=== PATIENT | male | born 1960 | race American Indian/Alaskan Native ===

== ENCOUNTER 2018-03-22 09:16 | Emergency (ER) | payer MEDICARE ==
[2018-03-22 09:26] VITALS: BP 135/79
[2018-03-22 10:08] LABS: Bilirubin,Urine NEG (Negative); Blood,Urine NEG (Negative); Color,Urine Yellow (Yellow); Mucus,Urine FEW /HPF; Protein,Urine <15 mg/dL mg/dL (Negative); Urobilinogen,Urine < 2.0 mg/dL (<2.0)
--- NOTE | 2018-03-22 11:27 | Emergency Department Report ---
Blank Doc - Documentation Documentation: Patient is a 57-year-old -[place] male who's had scrotal swelling for approximately 1 year. Patient states that he has become painful over the last week. There is no dysuria fevers chills at this time. Focused focused physical exam patient does have some generalized scrotal swelling there is no induration to the skin or warmth. Unable to palpate the patient's testicles. Ultrasound be performed.
--- NOTE | 2018-03-22 12:34 | Emergency Department Report ---
ED Male HPI - General Chief complaint: Urogenital-Male Stated complaint: TESTICULAR SWELLING Time Seen by Provider: 03/22/18 11:14 Source: patient Mode of arrival: Ambulatory Limitations: No Limitations - History of Present Illness Initial comments: 57-year-old male sense with complaint of left sided testicular swelling and discomfort for over one year. Patient denies fevers chills nausea vomiting dysuria hematuria or increased urinary frequency. Patient denies any direct trauma to testicles. Patient denies any rectal pain. Denies any penile discharge. Denies any previous history of epididymitis. MD Complaint: testicle pain, testicle swelling Onset/Timin -: year(s) Location: left testicle Severity: moderate Severity scale (0 -10): 6 Quality: aching, dull Improves with: none Worsens with: none swelling - Related Data Previous Rx's Medication Instructions Recorded Last Taken Type Cephalexin [Keflex] 500 mg PO Q6HR #40 capsule 11/20/15 Unknown Rx HYDROcodone/APAP 5-325 [Aline 1 each PO Q4HR PRN #6 tablet 11/20/15 Unknown Rx 5/325] Sulfamethoxazole/Trimethoprim 1 each PO BID #14 tablet 11/20/15 Unknown Rx [Bactrim DS TAB] Ibuprofen [Motrin] 800 mg PO Q8HR PRN #25 tablet 03/22/18 Unknown Rx Allergies Allergy/AdvReac Type Severity Reaction Status Date / Time Penicillins Allergy Unknown Verified 03/22/18 09:26 ED Review of Systems ROS: Stated complaint: TESTICULAR SWELLING Other details as noted in HPI Constitutional: denies: chills, fever Eyes: denies: eye pain, eye discharge, vision change ENT: denies: ear pain, throat pain Respiratory: denies: cough, shortness of breath, wheezing Cardiovascular: denies: chest pain, palpitations Endocrine: no symptoms reported Gastrointestinal: denies: abdominal pain, nausea, diarrhea Genitourinary: as per HPI, testicular pain, testicular mass (left-sided testicular swelling for over one year). denies: urgency, dysuria Musculoskeletal: denies: back pain, joint swelling, arthralgia Skin: denies: rash, lesions Neurological: denies: headache, weakness, paresthesias Psychiatric: denies: anxiety, depression Hematological/Lymphatic: denies: easy bleeding, easy bruising ED Past Medical Hx - Past Medical History Additional medical history: glaucoma - Social History Smoking Status: Current Every Day Smoker Substance Use Type: Alcohol - Medications Home Medications: Home Medications Medication Instructions Recorded Confirmed Last Taken Type Cephalexin [Keflex] 500 mg PO Q6HR #40 capsule 11/20/15 Unknown Rx HYDROcodone/APAP 5-325 [Aline 1 each PO Q4HR PRN #6 tablet 11/20/15 Unknown Rx 5/325] Sulfamethoxazole/Trimethoprim 1 each PO BID #14 tablet 11/20/15 Unknown Rx [Bactrim DS TAB] Ibuprofen [Motrin] 800 mg PO Q8HR PRN #25 tablet 03/22/18 Unknown Rx ED Physical Exam - General Limitations: No Limitations General appearance: alert, in no apparent distress - Head Head exam: Present: atraumatic, normocephalic - Eye Eye exam: Present: normal appearance - ENT ENT exam: Present: mucous membranes moist - Neck Neck exam: Present: normal inspection - Respiratory Respiratory exam: Present: normal lung sounds bilaterally. Absent: respiratory distress - Cardiovascular Cardiovascular Exam: Present: regular rate, normal rhythm. Absent: systolic murmur, diastolic murmur, rubs, gallop - GI/Abdominal GI/Abdominal exam: Present: soft, normal bowel sounds - Rectal Rectal exam: Present: deferred - exam: Present: testicular tenderness (left-sided testicular pain and swelling ) - Extremities Exam Extremities exam: Present: normal inspection - Back Exam Back exam: Present: normal inspection - Neurological Exam Neurological exam: Present: alert, oriented X3 - Psychiatric Psychiatric exam: Present: normal affect, normal mood - Skin Skin exam: Present: warm, dry, intact, normal color. Absent: rash ED Course Vital Signs 03/22/18 09:21 Temperature 97.4 F L Pulse Rate 77 Respiratory 16 Rate Blood Pressure 135/79 O2 Sat by Pulse 97 Oximetry ED Medical Decision Making - Medical Decision Making A/P: Left-sided hydrocele 1-urinalysis is unremarkable, scrotal/testicular ultrasound shows large left hydrocele no other abnormalities 2-patient referred to outpatient surgery and 3-I educated patient on hydrocele 4- Motrin when necessary Critical care attestation.: If time is entered above; I have spent that time in minutes in the direct care of this critically ill patient, excluding procedure time. ED Disposition Clinical Impression: Hydrocele in adult Disposition: DC-01 TO HOME OR SELFCARE Is pt being admited?: No Does the pt Need Aspirin: No Condition: Stable Instructions: Hydrocele (ED), Testicle Pain (ED) Prescriptions: Ibuprofen [Motrin] 800 mg PO Q8HR PRN #25 tablet PRN Reason: Pain , Severe (7-10) Referrals: [facility] [Provider Group] - 3-5 Days [facility] [Provider Group] - 3-5 Days Forms: Accompanied Note, Work/School Release Form(ED) Time of Disposition: 14:07
--- NOTE | 2018-03-22 14:04 | Ultrasound Report ---
FINAL REPORT EXAM: US TESTICULAR DOPPLER COMP HISTORY: pain with swelling TECHNIQUE: Grayscale and color and spectral doppler ultrasound imaging of the scrotum was performed. PRIORS: None. FINDINGS: The testicles are normal in echogenicity without focal lesion. Normal flow is seen to the testes. Normal arterial and venous waveforms were seen within the testes. The right testicle measures 4.0 x 2.2 x 2.6 centimeters. The left testicle measures 3.6 x 2.6 x 3.1 centimeters. The epididymides are normal. No varicocele. There is a very large left hydrocele. No right hydrocele. IMPRESSION: 1. No evidence of testicular torsion. 2. Very large left hydrocele.
== END 2018-03-22 14:10 | disposition home or self-care (01) ==
LOC: ED 09:16
DX: N43.3 Hydrocele, unspecified (principal); Z88.0 Allergy status to penicillin; F17.200 Nicotine dependence, unspecified, uncomplicated
CPT/HCPCS: 81001; 87086; 93975; 99284

== ENCOUNTER 2018-03-30 07:33 | Day surgery (SDC) | payer MEDICARE ==
[2018-03-30] MEDS ORDERED: LACTATED RINGERS 1,000 ML IV SCH (08:00)
[2018-03-30] MEDS ORDERED: VERSED IV NR (08:00)
[2018-03-30] MEDS ORDERED: NACL BACTERIOSTATIC INFILTRATI ONE (08:01)
[2018-03-30] MEDS ORDERED: PROAIR IH ONE (08:19)
--- NOTE | 2018-03-30 08:30 | Anesthesia Consultation ---
Anesthesia Consult and Med Hx Date of service: 03/30/18 - Airway Anesthetic Teeth Evaluation: Poor ROM Head & Neck: Adequate Mental/Hyoid Distance: Adequate Mallampati Class: Class I Intubation Access Assessment: Probably Good - Pulmonary Exam CTA: Yes - Cardiac Exam Cardiac Exam: RRR - Pre-Operative Health Status ASA Pre-Surgery Classification: ASA2 Proposed Anesthetic Plan: General - Pulmonary Hx Smoking: Yes (1 ppd >30 years) Hx Asthma: No Hx Respiratory Symptoms: Yes (productive morning cough) SOB: No COPD: Yes Home Oxygen Therapy: No Hx Pneumonia: No Hx Sleep Apnea: No - Cardiovascular System Hx Hypertension: No Hx Coronary Artery Disease: No Hx Heart Attack/AMI: No Hx Angina: No - Central Nervous System Hx Neuromuscular Disorder: No Hx Seizures: No CVA: No - Gastrointestinal Hx Gastroesophageal Reflux Disease: No - Endocrine Hx Renal Disease: No Hx Liver Disease: No Hx Hypothyroidism: No - Hematic Hx Anemia: No Hx Sickle Cell Disease: No - Other Systems Hx Alcohol Use: Yes (social) Hx Substance Use: No Hx Cancer: No Hx Obesity: No - Additional Comments Anesthesia Medical History Comments: No GAC, No FHAC
[2018-03-30] MEDS ORDERED: XYLOCAINE 1% 20 mL ONE (08:36)
[2018-03-30] MEDS ORDERED: MARCAINE 0.5% INFILTRATI ONE (08:36)
[2018-03-30] MEDS ORDERED: ROBINUL ONE (08:45)
[2018-03-30] MEDS ORDERED: DILAUDID ONE ×3 (08:46→11:28)
[2018-03-30] MEDS ORDERED: DIPRIVAN 10 MG/ML IV ONE (08:46)
[2018-03-30] MEDS ORDERED: ANCEF/STERILE WATER 2 GM/20 ML IV NR (09:00)
[2018-03-30] MEDS ORDERED: LEVAQUIN 500MG/100ML 500 MG/100 ML BAG IV NR (10:00)
[2018-03-30] MEDS ORDERED: ZOFRAN ONE (10:05)
[2018-03-30] MEDS ORDERED: DECADRON ONE (10:05)
[2018-03-30] MEDS ORDERED: NACL 0.9% IR ONE (10:25)
[2018-03-30] MEDS ORDERED: SUBLIMAZE ONE (11:03)
[2018-03-30] MEDS: DILAUDID IV PRN ×4 (11:25→12:15)
[2018-03-30] MEDS ORDERED: TORADOL IV PRN (11:45)
--- NOTE | 2018-03-30 11:46 | Post Operative Note ---
Date of procedure: 03/30/18 Pre-op diagnosis: left hydrocele Post-op diagnosis: same Findings: huge mass Procedure: L hydrocelectomy Anesthesia: GETA Surgeon: SARAN LINARES Estimated blood loss: minimal Pathology: list (sac) Specimen disposition: to lab Condition: stable Disposition: PACU
--- NOTE | 2018-03-30 11:47 | Discharge Summary ---
Short Stay Discharge Plan Activity: other (no straining ) Weight Bearing Status: Full Weight Bearing Diet: low salt Wound: change dressing Special Instructions: other (ice packs in RR and x 2 4 hrs ) Follow up with: [facility]IMARY [facility]ARE, [Primary Care Provider] - 7 Days SARAN LINARES MD [Staff Physician] - 3 Days
--- NOTE | 2018-03-30 11:50 | Anesthesia Day of Surgery ---
Anesthesia Day of Surgery - Day of Surgery Patient Examined: Yes Patient H&P Reviewed: Yes Patient is NPO: Yes
--- NOTE | 2018-03-30 11:50 | Post Anesthesia Evaluation ---
- Post Anesthesia Evaluation Patient Participated: Yes Airway Patent: Yes Stable Respiratory Function: Yes Nausea/Vomiting: No Temp > 96.8F: Yes Pain Manageable: Yes Adequeate Hydration: Yes Anesthesia Complications: No
--- NOTE | 2018-03-30 12:04 | Operative Report ---
PREOPERATIVE DIAGNOSIS: Huge mass in the scrotum, left side. POSTOPERATIVE DIAGNOSES: Huge left hydrocele. PROCEDURE: Left hydrocelectomy. SURGEON: Zack Sanchez MD. ANESTHESIA: General. FINDINGS: This is a gentleman with a huge mass in the left hemiscrotum, now presents for surgery. All risks and implications discussed. DESCRIPTION OF PROCEDURE: The patient was brought to the operating room and placed on the operating table. Following induction of anesthesia, placed in the supine position, prepped and draped in usual sterile fashion. An oblique incision made over the hemiscrotum, carried through the multiple layers of scrotal fascia to the tunica vaginalis. Plenty of small vessels were cauterized. Once we delivered the sac, it was opened. There was about 1000 mL of clear yellow fluid. This is a chronic process as can seen by the yellow discoloration of some of the tunica. Large amount of tunica was excised and this was oversewn with 3-0 chromic. The patient tolerated the procedure well. We did a few bottle neck sutures as well. No significant complication. No significant bleeding. Specimen sent to pathology. A Taft drain was placed in the dependent portion of the scrotum and secured with a silk. Closure was accomplished with 2-0 and 3-0 chromic for the fascia and skin. The patient tolerated the procedure well and brought to recovery in stable condition. JOB# [id number] BERENICE/ABDI
[2018-03-30 13:10] VITALS: BP 154/88
== END 2018-03-30 13:14 | disposition home or self-care (01) ==
LOC: OR 07:33
PROVIDERS: ATTEND Urology
DX: L72.8 Other follicular cysts of the skin and subcutaneous tissue (principal); F17.210 Nicotine dependence, cigarettes, uncomplicated; M19.90 Unspecified osteoarthritis, unspecified site; Z88.0 Allergy status to penicillin; Z90.49 Acquired absence of other specified parts of digestive tract; Z98.890 Other specified postprocedural states
CPT/HCPCS: 55040; 88302; J1100; J1170; J1885; J1956; J2250; J2405; J2704; J3010; J7120; J0690

== ENCOUNTER 2018-05-18 13:25 | Emergency (ER) | payer MEDICARE ==
[2018-05-18 14:27] VITALS: BP 140/89
== END 2018-05-18 17:00 | disposition left against medical advice (07) ==
LOC: ED 13:25
DX: M25.522 Pain in left elbow (principal); M79.89 Other specified soft tissue disorders; Z53.21 Procedure and treatment not carried out due to patient leaving prior to being seen by health care provider

== ENCOUNTER 2018-10-12 17:40 | Emergency (ER) | payer MEDICARE ==
[2018-10-12 17:49] VITALS: BP 130/78
[2018-10-12] MEDS ORDERED: IBUPROFEN PO ONE (21:35)
[2018-10-12] MEDS ORDERED: ROBITUSSIN PO ONE (21:35)
[2018-10-12] MEDS ORDERED: BENADRYL PO ONE (21:37)
--- NOTE | 2018-10-12 21:42 | Emergency Department Report ---
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, symptoms resolved by rest, Complaint: cough, sore throat, rhinorrhea, nasal congestion, sinus pain Onset/Timin -: days(s) Severity: moderate Severity scale (0 -10): 4 Quality: aching Consistency: intermittent Improves With: rest Worsens With: activity Context: sick contacts Associated Symptoms: rhinorrhea, nasal congestion, sore throat Treatments Prior to Arrival: none - Related Data Previous Rx's Medication Instructions Recorded Last Taken Type Ibuprofen [Motrin] 800 mg PO Q8HR PRN #25 tablet 03/22/18 03/27/18 Rx ALBUTEROL Inhaler(NF) [VENTOLIN 2 puff IH Q4H PRN #1 inha 10/12/18 Unknown Rx Inhaler(NF)] Azithromycin [Zithromax Z-JUSTIN] 250 mg PO DAILY #6 tablet 10/12/18 Unknown Rx Benzonatate [Tessalon Perles] 100 mg PO Q8HR PRN #30 capsule 10/12/18 Unknown Rx Ibuprofen 800 mg PO TID PRN #30 tablet 10/12/18 Unknown Rx predniSONE [Deltasone] 40 mg PO QDAY 5 Days #10 tab 10/12/18 Unknown Rx Allergies Allergy/AdvReac Type Severity Reaction Status Date / Time acetaminophen [From Tylenol] Allergy Unknown Verified 05/18/18 14:27 Penicillins Allergy DIFFICULTY Verified 03/30/18 09:21 BREATHING, HIVES, SWELLING ED Review of Systems ROS: Stated complaint: FLU SYTMPTONS Other details as noted in HPI Constitutional: denies: chills, fever Eyes: denies: eye pain, eye discharge, vision change ENT: throat pain, congestion. denies: ear pain Respiratory: cough Cardiovascular: denies: chest pain, palpitations Endocrine: no symptoms reported Gastrointestinal: denies: abdominal pain, nausea, diarrhea Genitourinary: denies: urgency, dysuria Musculoskeletal: denies: back pain, joint swelling, arthralgia Skin: denies: rash, lesions Neurological: denies: headache, weakness, paresthesias Psychiatric: denies: anxiety, depression Hematological/Lymphatic: denies: easy bleeding, easy bruising ED Past Medical Hx - Past Medical History Hx Hypertension: No Hx Heart Attack/AMI: No Hx Diabetes: No Hx Liver Disease: No Hx Renal Disease: No Hx Sickle Cell Disease: No Hx Arthritis: Yes (SPINE - ASSYMPTOMATIC) Hx Seizures: No Hx Asthma: No Hx COPD: Yes Additional medical history: glaucoma - Surgical History Hx Cholecystectomy: Yes Additional Surgical History: scrotum drained r/t swelling/edema - Social History Smoking Status: Never Smoker Substance Use Type: Alcohol - Medications Home Medications: Home Medications Medication Instructions Recorded Confirmed Last Taken Type Ibuprofen [Motrin] 800 mg PO Q8HR PRN #25 tablet 03/22/18 03/30/18 03/27/18 Rx ALBUTEROL Inhaler(NF) [VENTOLIN 2 puff IH Q4H PRN #1 inha 10/12/18 Unknown Rx Inhaler(NF)] Azithromycin [Zithromax Z-JUSTIN] 250 mg PO DAILY #6 tablet 10/12/18 Unknown Rx Benzonatate [Tessalon Perles] 100 mg PO Q8HR PRN #30 capsule 10/12/18 Unknown Rx Ibuprofen 800 mg PO TID PRN #30 tablet 10/12/18 Unknown Rx predniSONE [Deltasone] 40 mg PO QDAY 5 Days #10 tab 10/12/18 Unknown Rx ED Physical Exam - General Limitations: No Limitations General appearance: alert, in no apparent distress - Head Head exam: Present: atraumatic, normocephalic - Eye Eye exam: Present: normal appearance, PERRL, EOMI Pupils: Present: normal accommodation - ENT ENT exam: Present: normal orophraynx, mucous membranes moist, TM's normal bilaterally, normal external ear exam - Expanded ENT Exam Expanded Ear exam: Present: normal external inspection Mouth exam: Absent: trismus Teeth exam: Present: normal inspection Throat exam: Positive: tonsillar erythema, tonsillomegaly. Negative: tonsillar exudate, R peritonsillar mass, L peritonsillar mass - Neck Neck exam: Present: normal inspection - Respiratory Respiratory exam: Present: normal lung sounds bilaterally. Absent: respiratory distress, wheezes, stridor, chest wall tenderness - Cardiovascular Cardiovascular Exam: Present: regular rate, normal rhythm, normal heart sounds. Absent: systolic murmur, diastolic murmur, rubs, gallop - GI/Abdominal GI/Abdominal exam: Present: soft, normal bowel sounds. Absent: distended, rebound, bruit, hernia - Rectal Rectal exam: Present: deferred - Extremities Exam Extremities exam: Present: normal inspection, full ROM, normal capillary refill. Absent: tenderness, pedal edema, joint swelling, calf tenderness - Back Exam Back exam: Present: normal inspection, full ROM. Absent: tenderness, CVA tenderness (R), CVA tenderness (L) - Neurological Exam Neurological exam: Present: alert, oriented X3, CN II-XII intact, normal gait, reflexes normal - Psychiatric Psychiatric exam: Present: normal affect, normal mood - Skin Skin exam: Present: warm, dry, intact, normal color. Absent: rash ED Course Vital Signs 10/12/18 10/12/18 17:47 22:27 Temperature 98.1 F Pulse Rate 101 H Respiratory 20 20 Rate Blood Pressure 130/78 O2 Sat by Pulse 98 Oximetry ED Medical Decision Making - Radiology Data Radiology results: report reviewed, image reviewed Ordering Physician: GEURLINE CARY NP Date of Service: 10/12/18 Procedure(s): XR chest routine 2V Accession Number(s): [id number] cc: GUERLINE CARY NP Fluoro Time In Minutes: FINAL REPORT PROCEDURE: Chest. TECHNIQUE: PA and lateral views. HISTORY: Productive cough. COMPARISON: No prior studies are available for comparison. FINDINGS: The heart and mediastinum appear normal. The lungs are clear and well expanded. There are no pleural effusions. The soft tissues and regional skeleton are unremarkable. IMPRESSION: Normal study. Transcribed By: MRM Dictated By: AIMEE ARCE MD Electronically Authenticated By: AIMEE ARCE MD Signed Date/Time: 10/12/182313 DD/ 12 TD/TT: 10/12/182312 - Medical Decision Making CXR normal no infiltrates no opacities, plan: URI Bronchitis pt is 30 pack yr smoker, there is no wheezing no sob, cough productive clear, will tx with refill albuterol inhaler, prednisone, zpack, ibuprofen, tessalon pearls, will follow up with pcp in 2-3 days per verbalized agreement and understanding of same pt dc'd to home in stable condition at this time. Critical care attestation.: If time is entered above; I have spent that time in minutes in the direct care of this critically ill patient, excluding procedure time. ED Disposition Clinical Impression: Bronchitis Upper respiratory infection Qualifiers: URI type: unspecified viral URI Qualified Code(s): J06.9 - Acute upper respiratory infection, unspecified Disposition: DC-01 TO HOME OR SELFCARE Is pt being admited?: No Does the pt Need Aspirin: No Condition: Stable Instructions: Acute Bronchitis (ED), Upper Respiratory Infection (ED) Prescriptions: ALBUTEROL Inhaler(NF) [VENTOLIN Inhaler(NF)] 2 puff IH Q4H PRN #1 inha PRN Reason: shortness of breath wheezing Azithromycin [Zithromax Z-JUSTIN] 250 mg PO DAILY #6 tablet Benzonatate [Tessalon Perles] 100 mg PO Q8HR PRN #30 capsule PRN Reason: Cough Ibuprofen 800 mg PO TID PRN #30 tablet PRN Reason: pain fever predniSONE [Deltasone] 40 mg PO QDAY 5 Days #10 tab Referrals: CHUCK PARMAR MD [Primary Care Provider] - 3-5 Days [facility] [Outside] - 3-5 Days Forms: Work/School Release Form(ED) Time of Disposition: 23:53
--- NOTE | 2018-10-12 23:14 | XRay Report ---
FINAL REPORT PROCEDURE: Chest. TECHNIQUE: PA and lateral views. HISTORY: Productive cough. COMPARISON: No prior studies are available for comparison. FINDINGS: The heart and mediastinum appear normal. The lungs are clear and well expanded. There are no pleural effusions. The soft tissues and regional skeleton are unremarkable. IMPRESSION: Normal study.
== END 2018-10-13 00:05 | disposition home or self-care (01) ==
LOC: ED 17:40
DX: J40 Bronchitis, not specified as acute or chronic (principal); J06.9 Acute upper respiratory infection, unspecified; M19.90 Unspecified osteoarthritis, unspecified site; J44.9 Chronic obstructive pulmonary disease, unspecified; Z90.49 Acquired absence of other specified parts of digestive tract; Z88.0 Allergy status to penicillin; Z88.6 Allergy status to analgesic agent
CPT/HCPCS: 71046; 99283

== ENCOUNTER 2018-10-20 20:18 | Emergency (ER) | payer MEDICARE ==
[2018-10-20 20:35] VITALS: BP 138/76
[2018-10-20] MEDS ORDERED: ATROVENT IH ONE (23:07)
[2018-10-20] MEDS ORDERED: PROVENTIL IH ONE (23:07)
[2018-10-20] MEDS ORDERED: DELTASONE PO ONE (23:07)
--- NOTE | 2018-10-20 23:09 | Emergency Department Report ---
HPI - General Chief Complaint: Upper Respiratory Infection Time Seen by Provider: 10/20/18 23:03 - HPI HPI: 58-year-old -[place] male presents to the emergency department with a 2 day history of some shortness of breath, wheezing and makes dry and productive cough. The patient has a history of some type of asthma, COPD or bronchitis but he says he is not sure of his actual diagnosis. The patient is a tobacco smoker but denies any illicit drug use. 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 He says that the symptoms have been going on since he went back to work 2 days ago. He denies any fever, chest pain, back pain. No recent travel or sick contacts at home. He does not have a primary care physician. He tried an albuterol inhaler once or twice without much relief. ED Past Medical Hx - Past Medical History Previous Medical History?: Yes Hx Hypertension: No Hx Heart Attack/AMI: No Hx Diabetes: No Hx Liver Disease: No Hx Renal Disease: No Hx Sickle Cell Disease: No Hx Arthritis: Yes (SPINE - ASSYMPTOMATIC) Hx Seizures: No Hx Asthma: No Hx COPD: Yes Additional medical history: glaucoma - Surgical History Past Surgical History?: Yes Hx Cholecystectomy: Yes Additional Surgical History: scrotum drained r/t swelling/edema - Social History Smoking Status: Current Every Day Smoker Substance Use Type: Alcohol - Medications Home Medications: Home Medications Medication Instructions Recorded Confirmed Last Taken Type Ibuprofen [Motrin] 800 mg PO Q8HR PRN #25 tablet 03/22/18 03/30/18 03/27/18 Rx RX: ALBUTEROL Inhaler(NF) 2 puff IH Q4H PRN #1 inha 10/12/18 Unknown Rx [VENTOLIN Inhaler(NF)] RX: Azithromycin [Zithromax Z-JUSTIN] 250 mg PO DAILY #6 tablet 10/12/18 Unknown Rx RX: Ibuprofen 800 mg PO TID PRN #30 tablet 10/12/18 Unknown Rx ALBUTEROL Inhaler (OR & NICU) 2 puff IH QID PRN #1 inhalation 10/21/18 Unknown Rx [Proair] RX: Benzonatate [Tessalon Perles] 100 mg PO Q8HR PRN #20 capsule 10/21/18 Unknown Rx RX: predniSONE [Deltasone] 40 mg PO QDAY 5 Days #10 tab 10/21/18 Unknown Rx ED Review of Systems ROS: Stated complaint: UPPER RESPIRATORY ISSUES Other details as noted in HPI Comment: All other systems reviewed and negative Constitutional: denies: chills, fever Eyes: denies: eye pain, vision change ENT: denies: ear pain, throat pain Respiratory: cough, shortness of breath, wheezing Cardiovascular: denies: chest pain, edema Gastrointestinal: denies: abdominal pain, vomiting Genitourinary: denies: dysuria, frequency Musculoskeletal: denies: back pain, arthralgia Skin: denies: rash, change in color Neurological: denies: headache, weakness Physical Exam - Physical Exam Vital Signs: Vital Signs 10/20/18 20:34 Temperature 97.7 F Pulse Rate 79 Respiratory 20 Rate Blood Pressure 138/76 [Right] O2 Sat by Pulse 100 Oximetry Physical Exam: GENERAL: The patient is well-developed well-nourished. HEENT: Normocephalic. Atraumatic. Patient has moist mucous membranes. EYES: Extraocular motions are intact. Pupils are equal and reactive to light bilaterally. NECK: Supple. Trachea is midline. CHEST/LUNGS: Mild wheezing throughout the chest. No tachypnea or accessory muscle use. There is a dry cough heard during examination. There is no respiratory distress noted. HEART/CARDIOVASCULAR: Regular. There is no tachycardia. There is no obvious murmur. ABDOMEN: Abdomen is soft, nontender. Patient has normal bowel sounds. There is no abdominal distention. SKIN: Skin is warm and dry. NEURO: The patient is awake, alert, and oriented. The patient is cooperative. The patient has no focal neurologic deficits. The patient has normal speech. MUSCULOSKELETAL: There is no tenderness or deformity. There is no evidence of acute injury. ED Course Vital Signs 10/20/18 20:34 Temperature 97.7 F Pulse Rate 79 Respiratory 20 Rate Blood Pressure 138/76 [Right] O2 Sat by Pulse 100 Oximetry ED Medical Decision Making - EKG Data -: EKG Interpreted by Me EKG shows normal: sinus rhythm, axis, intervals, QRS complexes, ST-T waves Rate: normal - EKG Data When compared to previous EKG there are: previous EKG unavailable Interpretation: normal EKG - Radiology Data Radiology results: image reviewed interpreted by me: Chest x-ray does not show any pneumothorax, pleural effusion, pneumonia or obvious focal consolidation. - Medical Decision Making Patient presents with a 2 day history of some shortness of breath, wheezing and coughing. He is a tobacco smoker with some type of asthma or COPD history and also has a job where he is surrounded by smoke by a burn barrel after trees and leaves a cut down. Vital signs are stable including being afebrile. There is no significant tachycardia, tachypnea or hypoxia. Chest x-ray did not show any pneumonia, pleural effusions, pneumothorax, focal consolidation, or any other acute process. EKG was normal without ST elevation CA, ischemia or dysrhythmia. Patient was given a breathing treatment and a dose of steroids. Upon reevaluation he is feeling greatly improved. We discussed smoking cessation. He will go home with a albuterol inhaler and a 5 day course of steroids. He will follow up with primary care and will return to the ER with any worsening of his symptoms or any acute distress. - Differential Diagnosis asthma, COPD, bronchitis, pneumonia Critical Care Time: No Critical care attestation.: If time is entered above; I have spent that time in minutes in the direct care of this critically ill patient, excluding procedure time. ED Disposition Clinical Impression: Bronchospasm Upper respiratory infection Qualifiers: URI type: unspecified URI Qualified Code(s): J06.9 - Acute upper respiratory infection, unspecified Disposition: DC- TO HOME OR SELFCARE Is pt being admited?: No Condition: Stable Instructions: How to Stop Smoking (ED), Upper Respiratory Infection (ED), Bronchospasm (ED) Additional Instructions: Please follow up with a primary care physician in the next few days. Return to the emergency Department with any worsening of your symptoms or any acute distress. Please try and quit smoking. Prescriptions: ALBUTEROL Inhaler (OR & NICU) [Proair] 2 puff IH QID PRN #1 inhalation PRN Reason: Shortness Of Breath RX: Benzonatate [Tessalon Perles] 100 mg PO Q8HR PRN #20 capsule PRN Reason: Cough RX: predniSONE [Deltasone] 40 mg PO QDAY 5 Days #10 tab Referrals: HANNAH PEDRAZA [Primary Care Provider] - 3-5 Days [facility] [Outside] - 3-5 Days Forms: Work/School Release Form(ED) Time of Disposition: :06
--- NOTE | 2018-10-21 13:31 | XRay Report ---
ROUTINE CHEST, TWO VIEWS: HISTORY: Cough. The trachea, heart, mediastinal contour, lung castro and bony thorax are unremarkable. No significant change since 10/12/18. IMPRESSION: Unremarkable chest x-ray.
== END 2018-10-21 01:19 | disposition home or self-care (01) ==
LOC: ED 20:18
DX: J06.9 Acute upper respiratory infection, unspecified (principal); J98.01 Acute bronchospasm; J44.9 Chronic obstructive pulmonary disease, unspecified; M19.90 Unspecified osteoarthritis, unspecified site; F17.200 Nicotine dependence, unspecified, uncomplicated; Z90.49 Acquired absence of other specified parts of digestive tract; Z88.6 Allergy status to analgesic agent; Z91.013 Allergy to seafood; Z88.0 Allergy status to penicillin
CPT/HCPCS: 71046; 93005; 93010; 94640; 99283; J7512

== ENCOUNTER 2018-12-14 15:42 | Emergency (ER) | payer MEDICARE ==
--- NOTE | 2018-12-14 15:59 | Emergency Department Report ---
Blank Doc - Documentation Documentation: This is a 58-year-old male that presents with a left eye blurry vision. Stated sees a floaters in left eye. Also stated has some slight headache and vomiting. This initial assessment/diagnostic orders/clinical plan/treatment(s) is/are subject to change based on patient's health status, clinical progression and re- assessment by fellow clinical providers in the ED. Further treatment and workup at subsequent clinical providers discretion. Patient/guardians urged not to el ope from the ED as their condition may be serious if not clinically assessed and managed. Initial orders include: 1- Patient sent to MAIN ED for further evaluation and treatment 2- CT head 3- labs 4- visual acuity
[2018-12-14 16:25] LABS: Basophils % (Auto) 0.9 % (0.0-1.8); Eosinophils % (Auto) 0.9 % (0.0-4.3); Hematocrit 40.3 % (35.5-45.6); Hemoglobin 13.4 gm/dl (11.8-15.2); Lymphocytes # (Auto) 1.9 K/mm3 (1.2-5.4); Lymphocytes % (Auto) 42.7 % (13.4-35.0); Mean Corpuscular HGB Conc 33 % (32-34); Mean Corpuscular Volume 94 fl (84-94); Monocytes # (Auto) 0.4 K/mm3 (0.0-0.8); Monocytes % (Auto) 8.6 % (0.0-7.3); Platelet Count 249 K/mm3 (140-440); Red Blood Count 4.28 M/mm3 (3.65-5.03); Red Cell Distribution Width 14.4 % (13.2-15.2)
[2018-12-14 16:53] LABS: BUN/Creatinine Ratio 12; Blood Urea Nitrogen 12 mg/dL (9-20); Hemolysis Index 10
[2018-12-14 19:58] VITALS: BP 137/77
--- NOTE | 2018-12-14 20:05 | Cat Scan Report ---
PROCEDURE: CT HEAD/BRAIN WO CON TECHNIQUE: Axial helical imaging from the skull base to the vertex. HISTORY: headache COMPARISONS: None FINDINGS: There is no evidence of an acute intracranial process, intracranial hemorrhage or mass effect. The ventricles are normal size. The visualized portions of the orbits, paranasal and mastoid sinuses are notable for nonspherical sha pe of the globes bilaterally. The bony structures are unremarkable. IMPRESSION: 1. No evidence of an acute intracranial process, intracranial hemorrhage or mass effect. If the patient remains symptomatic and if further imaging is required, MRI may be helpful. 2. Nonspherical shape of the globes bilaterally. This document is electronically signed by Donna Felipe MD., December 14 2018 08:03:16 PM ET
[2018-12-14] MEDS ORDERED: BSS ONE (20:23)
[2018-12-14] MEDS ORDERED: TETRACAINE 0.5% ONE (20:23)
[2018-12-14] MEDS ORDERED: FUL-GLO OP ONE (20:24)
--- NOTE | 2018-12-14 20:25 | Emergency Department Report ---
HPI - General Chief Complaint: Eye Problems Time Seen by Provider: 12/14/18 15:56 - HPI HPI: Room 5 The patient is a 58-year-old male presenting with a chief complaint of blurred vision. The patient states he's had a "floater" in his left eye for approx imately 1 week but then today the floater noted in front of his pupil obstructing his vision. The patient states the floater is brownish black in color. The patient states he then noticed blurred vision and his right eye. The nurse in the ED states she was able to see the floater in his left eye when she had the patient look down and then look up again however this was unable to be reproduced. Patient denies eye pain states he had a headache earlier which has since resolved. Patient states he is able to see out of the left eye now but his vision is blurred in the right eye Location: [See above] Duration: [See above] Quality: [See above] Severity: [See above] Modifying factors: [see above] Context: [see above] Mode of transportation: [not driving] ED Past Medical Hx - Past Medical History Hx Arthritis: Yes (SPINE - ASSYMPTOMATIC) Hx COPD: Yes Additional medical history: glaucoma - Surgical History Hx Cholecystectomy: Yes Additional Surgical History: scrotum drained r/t swelling/edema. Right eye surgery. - Family History Family history: no significant - Social History Smoking Status: Current Every Day Smoker (1/2 pack per day) Substance Use Type: None (denies illicit drug use) - Medications Home Medications: Home Medications Medication Instructions Recorded Confirmed Last Taken Type Ibuprofen [Motrin] 800 mg PO Q8HR PRN #25 tablet 03/22/18 03/30/18 03/27/18 Rx ALBUTEROL Inhaler(NF) [VENTOLIN 2 puff IH Q4H PRN #1 inha 10/12/18 Unknown Rx Inhaler(NF)] Azithromycin [Zithromax Z-JUSTIN] 250 mg PO DAILY #6 tablet 10/12/18 Unknown Rx Ibuprofen 800 mg PO TID PRN #30 tablet 10/12/18 Unknown Rx ALBUTEROL Inhaler (OR & NICU) 2 puff IH QID PRN #1 inhalation 10/21/18 Unknown Rx [Proair] Benzonatate [Tessalon Perles] 100 mg PO Q8HR PRN #20 capsule 10/21/18 Unknown Rx predniSONE [Deltasone] 40 mg PO QDAY 5 Days #10 tab 10/21/18 Unknown Rx ED Review of Systems ROS: Stated complaint: EYES BLURRY Other details as noted in HPI Constitutional: no symptoms reported Eyes: vision change. denies: eye pain ENT: denies: throat pain Respiratory: no symptoms reported Cardiovascular: denies: chest pain Endocrine: denies: no symptoms reported Gastrointestinal: denies: abdominal pain Genitourinary: denies: dysuria Musculoskeletal: denies: back pain Neurological: headache Physical Exam - Physical Exam Vital Signs: Vital Signs 12/14/18 12/14/18 12/14/18 15:57 18:35 18:45 Temperature 98.4 F Pulse Rate 92 H Respiratory 18 Rate Blood Pressure 153/95 146/94 Blood Pressure [Left] O2 Sat by Pulse 99 99 98 Oximetry 12/14/18 12/14/18 12/14/18 19:00 19:10 19:14 Temperature 97.9 F Pulse Rate 77 Respiratory 16 20 Rate Blood Pressure 145/95 Blood Pressure 137/77 [Left] O2 Sat by Pulse 98 100 Oximetry 12/14/18 19:17 Temperature 98.4 F Pulse Rate Respiratory Rate Blood Pressure Blood Pressure [Left] O2 Sat by Pulse Oximetry Physical Exam: GENERAL: The patient is well-developed well-nourished male lying on stretcher not appearing to be in acute distress. [] HEENT: Normocephalic. Atraumatic. Extraocular motions are intact. Patient has moist mucous membranes. No floaters seen in the left eye. Discs sharp. John- Pen OS 10, OD 9-10 NECK: Supple. Trachea midline CHEST/LUNGS: Clear to auscultation. There is no respiratory distress noted. HEART/CARDIOVASCULAR: Regular. There is no tachycardia. There is no gallop rub or murmur. ABDOMEN: Abdomen is soft, nontender. Patient has normal bowel sounds. There is no abdominal distention. SKIN: There is no rash. There is no edema. There is no diaphoresis. NEURO: The patient is awake, alert, and oriented. The patient is cooperative. The patient has no focal neurologic deficits. The patient has normal speech. Cranial nerves II through XII grossly intact, no drift MUSCULOSKELETAL: There is no evidence of acute injury. ED Course Vital Signs 12/14/18 12/14/18 12/14/18 15:57 18:35 18:45 Temperature 98.4 F Pulse Rate 92 H Respiratory 18 Rate Blood Pressure 153/95 146/94 Blood Pressure [Left] O2 Sat by Pulse 99 99 98 Oximetry 12/14/18 12/14/18 12/14/18 19:00 19:10 19:14 Temperature 97.9 F Pulse Rate 77 Respiratory 16 20 Rate Blood Pressure 145/95 Blood Pressure 137/77 [Left] O2 Sat by Pulse 98 100 Oximetry 12/14/18 19:17 Temperature 98.4 F Pulse Rate Respiratory Rate Blood Pressure Blood Pressure [Left] O2 Sat by Pulse Oximetry ED Medical Decision Making - Lab Data Result diagrams: 12/14/18 16:03 12/14/18 16:03 - Radiology Data Radiology results: report reviewed (CT head), image reviewed (CT head) [place] [address] Cat Scan Report Signed Patient: SARAN RUELAS MR#: [id number] : 1960 Acct:[id number] Age/Sex: 58 / M ADM Date: 12/14/18 Loc: ED Attending Dr: Ordering Physician: KEVAN STEVENS NP Date of Service: 12/14/18 Procedure(s): CT head/brain wo con Accession Number(s): [id number] cc: KEVAN STEVENS NP PROCEDURE: CT HEAD/BRAIN WO CON TECHNIQUE: Axial helical imaging from the skull base to the vertex. HISTORY: headache COMPARISONS: None FINDINGS: There is no evidence of an acute intracranial process, intracranial hemorrhage o r mass effect. The ventricles are normal size. The visualized portions of the orbits, paranasal and mastoid sinuses are notable for nonspherical shape of the globes bilaterally. The bony structures are unremarkable. IMPRESSION: 1. No evidence of an acute intracranial process, intracranial hemorrhage or mass effect. If the patient remains symptomatic and if further imaging is required, MRI may be helpful. 2. Nonspherical shape of the globes bilaterally. This document is electronically signed by Donna Felipe MD., December 14 2018 08:03:16 PM ET Transcribed By: ED Dictated By: DONNA FELIPE MD Electronically Authenticated By: DONNA FELIPE MD Signed Date/Time: 12/14/182004 DD/ 08 TD/TT: 12/14/181908 - Differential Diagnosis vitreous floaters, glaucoma, vitreous hemorrhage Critical care attestation.: If time is entered above; I have spent that time in minutes in the direct care of this critically ill patient, excluding procedure time. ED Disposition Clinical Impression: Blurred vision, right eye, Vitreous floaters Disposition: - TO HOME OR SELFCARE Is pt being admited?: No Does the pt Need Aspirin: No Condition: Stable Additional Instructions: Return to the emergency department immediately should you develop worsening symptoms, fever, inability to tolerate food or liquid or any other concerns. Referrals: DAE GUTIERREZ [Other] - 3-5 Days JEREL POTTS MD [Staff Physician] - [facility] (Dr. Potts is an justice professor. Please follow up with him for further evaluation) Time of Disposition: 20:45
== END 2018-12-14 20:51 | disposition home or self-care (01) ==
LOC: ED 15:42
DX: H43.391 Other vitreous opacities, right eye (principal); M19.90 Unspecified osteoarthritis, unspecified site; J44.9 Chronic obstructive pulmonary disease, unspecified; F17.210 Nicotine dependence, cigarettes, uncomplicated; Z90.49 Acquired absence of other specified parts of digestive tract; Z88.8 Allergy status to other drugs, medicaments and biological substances; Z88.6 Allergy status to analgesic agent; Z88.0 Allergy status to penicillin; Z91.013 Allergy to seafood
CPT/HCPCS: 36415; 70450; 80048; 85025; 99284